=== PATIENT | female | born 1960 | race Caucasian/White ===

== ENCOUNTER 2018-04-10 09:47 | Outpatient (CLI) | payer BC | END 2018-04-10 09:48 | disposition home or self-care (01) | LOC: BICMAMMO 09:47 | PROVIDERS: ATTEND Obstetrics & Gynecology | DX: Z12.31 Encounter for screening mammogram for malignant neoplasm of breast (principal); Z80.3 Family history of malignant neoplasm of breast | CPT/HCPCS: 77063; 77067 ==

== ENCOUNTER 2019-04-15 10:12 | Outpatient (CLI) | payer BC ==
--- NOTE | 2019-04-15 12:06 | MMO ---
Bilateral MAMMO Bilat Screen [facility]. CLINICAL HISTORY: Patient is 59 years old and is seen for screening. The patient has the following family history of breast cancer: maternal grandmother. The patient has no personal history of cancer. The patient has a history of bilateral Breast reduction in November,. VIEWS: The views performed were: bilateral craniocaudal with tomosynthesis and bilateral mediolateral oblique with tomosynthesis. FILMS COMPARED: The present examination has been compared to prior imaging studies performed at [facility] on 03/30/2015, 03/31/2016, 04/05/2017 and 04/10/2018. This study has been interpreted with the assistance of computer-aided detection. MAMMOGRAM FINDINGS: There are scattered fibroglandular densities. There are no suspicious masses, suspicious calcifications, or new areas of architectural distortion. IMPRESSION: THERE IS NO MAMMOGRAPHIC EVIDENCE OF MALIGNANCY. A ROUTINE FOLLOW-UP MAMMOGRAM IN 1 YEAR IS RECOMMENDED. THE RESULTS OF THIS EXAM WERE SENT TO THE PATIENT. ACR BI-RADS Category 1 - Negative MAMMOGRAPHY NOTE: 1. A negative mammogram report should not delay a biopsy if a dominant of clinically suspicious mass is present. 2. Approximately 10% to 15% of breast cancers are not detected by mammography. 3. Adenosis and dense breasts may obscure an underlying neoplasm. Reported by: MARYLU BUTLER MD Electonically Signed: [id number]
== END 2019-04-15 10:13 | disposition home or self-care (01) ==
LOC: BICMAMMO 10:12
PROVIDERS: ATTEND Internal Medicine
DX: Z12.31 Encounter for screening mammogram for malignant neoplasm of breast (principal); Z98.890 Other specified postprocedural states; Z80.3 Family history of malignant neoplasm of breast
CPT/HCPCS: 77063; 77067

== ENCOUNTER 2020-04-20 08:59 | Outpatient (CLI) | payer BC ==
--- NOTE | 2020-04-20 10:02 | MMO ---
Bilateral MAMMO Bilat Screen [facility]. CLINICAL HISTORY: Patient is 60 years old and is seen for screening. The patient has the following family history of breast cancer: maternal grandmother. The patient has no personal history of cancer. The patient has a history of bilateral Breast reduction in November,. VIEWS: The views performed were: bilateral craniocaudal with tomosynthesis and bilateral mediolateral oblique with tomosynthesis. FILMS COMPARED: The present examination has been compared to prior imaging studies performed at [facility] on 03/31/2016, 04/05/2017, 04/10/2018 and 04/15/2019. This study has been interpreted with the assistance of computer-aided detection. MAMMOGRAM FINDINGS: There are scattered fibroglandular densities. There are no suspicious masses, suspicious calcifications, or new areas of architectural distortion. IMPRESSION: THERE IS NO MAMMOGRAPHIC EVIDENCE OF MALIGNANCY. A ROUTINE FOLLOW-UP MAMMOGRAM IN 1 YEAR IS RECOMMENDED. THE RESULTS OF THIS EXAM WERE SENT TO THE PATIENT. ACR BI-RADS Category 1 - Negative MAMMOGRAPHY NOTE: 1. A negative mammogram report should not delay a biopsy if a dominant of clinically suspicious mass is present. 2. Approximately 10% to 15% of breast cancers are not detected by mammography. 3. Adenosis and dense breasts may obscure an underlying neoplasm. Reported by: TIGRE GRANT MD Electonically Signed: [id number]
== END 2020-04-20 09:00 | disposition home or self-care (01) ==
LOC: BICMAMMO 08:59
PROVIDERS: ATTEND Internal Medicine
DX: Z12.31 Encounter for screening mammogram for malignant neoplasm of breast (principal); Z80.3 Family history of malignant neoplasm of breast; Z98.890 Other specified postprocedural states
CPT/HCPCS: 77063; 77067

== ENCOUNTER 2021-05-11 10:56 | Outpatient (CLI) | payer BC | END 2021-05-11 10:57 | disposition home or self-care (01) | LOC: BICMAMMO 10:56 | PROVIDERS: ATTEND Internal Medicine | DX: Z12.31 Encounter for screening mammogram for malignant neoplasm of breast (principal); Z80.3 Family history of malignant neoplasm of breast; Z98.890 Other specified postprocedural states | CPT/HCPCS: 77063; 77067 ==

== ENCOUNTER 2022-07-07 10:39 | Outpatient (CLI) | payer BC | END 2022-07-07 10:40 | disposition home or self-care (01) | LOC: BICMAMMO 10:39 | PROVIDERS: ATTEND Internal Medicine | DX: Z12.31 Encounter for screening mammogram for malignant neoplasm of breast (principal); Z90.13 Acquired absence of bilateral breasts and nipples; Z80.3 Family history of malignant neoplasm of breast | CPT/HCPCS: 77063; 77067 ==

== ENCOUNTER 2022-07-13 10:38 | Outpatient (CLI) | payer BC ==
[2022-07-13 12:10] LABS: #Eosinphils 0.1 10x3/uL (0.0-0.5); #Monocytes 0.6 10x3/uL (0.0-1.1); #Neutrophils 3.2 10x3/uL (1.5-8.4); %Basophils 0.4 % (0.0-2.0); %Eosinophils 0.9 % (0.0-6.0); %Lymphocytes 27.7 % (18.0-47.0); %Monocytes 10.5 % (0.0-10.0); %Neutrophils 60.3 % (40.0-75.0); Hemoglobin 14.3 g/dL (12.0-15.5); Mean Corpuscular HGB CONC 32.8 g/dL (32.0-36.0); Mean Corpuscular Hemoglobin 30.4 pg (27.0-33.0); Mean Corpuscular Volume 92.6 fl (81.6-98.3); Mean Platelet Volume 9.6 fl (7.4-10.4); Platelet Count 327 10x3/uL (150-450); RBC Distribution Width 13.1 % (11.5-14.5); Red Blood Cell (RBC) Count 4.71 10x6/uL (3.90-5.03); White Blood Cell (WBC) Count 5.4 10x3/uL (3.5-10.5)
[2022-07-13 12:23] LABS: INR-International Normal Ratio 0.9; Prothrombin Time 10.1 sec (9.5-12.1)
[2022-07-13 12:25] LABS: Anion Gap 14 mmol/L (10-20); BUN (Urea Nitrogen) 17 mg/dL (9.8-20.1); Calc. Creatinine Clearance 0 mL/min (70-130); Calcium 9.7 mg/dL (7.8-10.44); Carbon Dioxide 25 mmol/L (23-31); Chloride 105 mmol/L (98-107); Estimated GFR 72; Glucose 99 mg/dL (80-115); Potassium 4.4 mmol/L (3.5-5.1); Sodium 140 mmol/L (136-145)
== END 2022-07-13 10:39 | disposition home or self-care (01) ==
LOC: LABBT 10:38
PROVIDERS: ATTEND Orthopaedic Surgery
DX: Z01.818 Encounter for other preprocedural examination (principal); M16.12 Unilateral primary osteoarthritis, left hip
CPT/HCPCS: 80048; 85025; 85610; 87081; 93005; 93010

== ENCOUNTER 2022-07-18 05:33 | Observation (INO) | payer BC ==
[2022-07-14 13:07] VITALS: BMI 24.3
[2022-07-18] MEDS ORDERED: fentaNYL PF 100 MCG/2 ML SYRINGE ONE ×2 (06:03→08:18)
[2022-07-18] MEDS ORDERED: Midazolam HCl 2 mg/2 ml Vial ONE (06:13)
[2022-07-18] MEDS ORDERED: Lidocaine 2% 6 ML SYR ONE (06:13)
[2022-07-18] MEDS ORDERED: PHENYLEPHRINE-NS 100 MCG/ML 10 ML SYRINGE ONE ×2 (06:14→06:33)
[2022-07-18] MEDS ORDERED: Bupivacaine PF 0.5% 30 ML VIAL ONE ×2 (06:27→06:28)
[2022-07-18] MEDS ORDERED: Vancomycin 1 GM/200 ML (FROZEN) BAG ONE (06:31)
[2022-07-18] MEDS ORDERED: Tranexamic Acid 1,000 MG/10 ML VIAL ONE (06:31)
[2022-07-18] MEDS ORDERED: Sodium Chloride 0.9% 100 ML ONE ×2 (06:31→06:49)
[2022-07-18] MEDS ORDERED: Dexamethasone 20 MG/5 ML VIAL ONE (06:33)
[2022-07-18] MEDS ORDERED: PROPOFOL 200 MG/20 ML VIAL ONE (06:33)
[2022-07-18] MEDS ORDERED: Rocuronium Bromide 10 MG/ML (10ML VIAL) ONE (06:33)
[2022-07-18] MEDS ORDERED: Lidocaine 1.5% w/Epi 1:200K 30 ML VIAL (Epid Use) ONE (06:33)
[2022-07-18] MEDS ORDERED: ePHEDrine 50 MG/ML VIAL ONE (06:33)
[2022-07-18] MEDS ORDERED: Ondansetron PF 4 MG/2 ML Vial ONE (06:33)
[2022-07-18] MEDS ORDERED: CEFAZOLIN 2 GM VIAL ONE (06:49)
[2022-07-18] MEDS ORDERED: Bupivacaine/Epinephrine 0.25% 30 ML VIAL ONE (07:00)
[2022-07-18 07:10] LABS: SARS-CoV-2 NAA Rapid Test Not Detected (NotDetected)
[2022-07-18] MEDS ORDERED: Bupivacaine 0.25% 10 ML VIAL EPIDURAL PRN (07:30)
[2022-07-18] MEDS ORDERED: Naloxone HCl 0.4 mg/ml Vial IV PRN (07:30)
[2022-07-18] MEDS ORDERED: Promethazine HCl 25 MG/ML VIAL IM PRN ×3 (07:30→09:27)
[2022-07-18] MEDS ORDERED: diphenhydrAMINE 50 MG/ML VIAL IM PRN (07:30)
[2022-07-18] MEDS ORDERED: Fentanyl/Bupivacaine 100 ML EPIDURAL SCH (07:30)
[2022-07-18] MEDS ORDERED: Promethazine HCl 25 MG SUPP PR PRN (07:30)
[2022-07-18] MEDS ORDERED: Zolpidem Tartrate 5 MG TAB PO PRN ×2 (07:30→09:27)
[2022-07-18] MEDS ORDERED: traMADol HCl 50 MG TAB PO PRN ×2 (07:30)
[2022-07-18] MEDS ORDERED: HYDROcodone/Acetaminophen 5/325 mg Tablet PO PRN ×2 (07:30)
[2022-07-18] MEDS ORDERED: Moisturizing Cream (Eucerin) 113 GM JAR TOP PRN (07:30)
[2022-07-18] MEDS ORDERED: diphenhydrAMINE 25 MG CAP PO PRN ×2 (07:30→09:27)
[2022-07-18] MEDS ORDERED: Ondansetron PF 4 MG/2 ML Vial IVP PRN ×2 (07:30→09:27)
[2022-07-18] MEDS ORDERED: Naloxone HCl 0.4 mg/ml Vial IVP PRN (07:30)
[2022-07-18] MEDS ORDERED: diphenhydrAMINE 50 MG/ML VIAL IVP PRN (07:30)
[2022-07-18] MEDS ORDERED: Ondansetron HCl/PF 4 MG/2 ML Vial IVP PRN (09:21)
[2022-07-18] MEDS ORDERED: HYDROmorphone 2 MG/ML VIAL SLOW IVP PRN (09:21)
[2022-07-18] MEDS ORDERED: Ketorolac Tromethamine 30 MG/ML VIAL IVP PRN (09:21)
[2022-07-18] MEDS ORDERED: Acetaminophen 325 MG TAB PO PRN (09:27)
[2022-07-18] MEDS ORDERED: Ketorolac Tromethamine 30 MG/ML VIAL ONE (13:27)
[2022-07-18] MEDS: Ketorolac Tromethamine 30 MG/ML VIAL IVP SCH ×3 (13:30→23:26)
[2022-07-18] MEDS: Multivitamin W/ Minerals 1 TAB PO SCH (15:03)
[2022-07-18] MEDS: Aspirin 81 mg Enteric Coated Tablet PO SCH ×2 (15:03→21:39)
[2022-07-18] MEDS: Ferrous Gluconate 324 MG TAB PO SCH ×2 (15:03→21:39)
[2022-07-18] MEDS: Senokot S 8.6-50 MG TAB PO SCH ×2 (15:04→21:39)
[2022-07-18] MEDS: CEFAZOLIN 2 GM in Sodium Chloride 0.9% 100 ML IVPB SCH ×2 (15:41→21:39)
[2022-07-19] MEDS: Ketorolac Tromethamine 30 MG/ML VIAL IVP SCH ×2 (05:12→13:12)
[2022-07-19 06:05] LABS: Hemoglobin 11.2 g/dL (12.0-16.0); Mean Corpuscular HGB CONC 32.7 g/dL (32.0-36.0); Mean Corpuscular Volume 97.9 fl (78.0-98.0); Mean Platelet Volume 7.6 fL (7.4-10.4); Platelet Count 235 10x3/uL (130-400); RBC Distribution Width 12.1 % (11.5-14.5); Red Blood Cell (RBC) Count 3.49 mill/uL (4.20-5.40); White Blood Cell (WBC) Count 6.2 10x3/uL (4.8-10.8)
[2022-07-19] MEDS: Aspirin 81 mg Enteric Coated Tablet PO SCH (09:18)
[2022-07-19] MEDS: Senokot S 8.6-50 MG TAB PO SCH (09:18)
[2022-07-19] MEDS: Multivitamin W/ Minerals 1 TAB PO SCH (09:18)
[2022-07-19] MEDS: Ferrous Gluconate 324 MG TAB PO SCH (09:18)
[2022-07-19] MEDS ORDERED: HYDROcodone/Acetaminophen 10/325 mg Tablet PO PRN ×2 (11:45)
[2022-07-19 16:30] VITALS: BP 97/50; TEMP 98
== END 2022-07-19 17:50 | disposition home or self-care (01) ==
LOC: SDC 05:33 → SURG A 09:27 → INTOOBSV 09:27
PROVIDERS: ADMIT Orthopaedic Surgery; ATTEND Orthopaedic Surgery
PROC: 0SRB04A Replacement of Left Hip Joint with Ceramic on Polyethylene Synthetic Substitute, Uncemented, Open Approach (ICD-10-PCS; principal; 2022-07-18)
DX: M16.12 Unilateral primary osteoarthritis, left hip (principal); J42 Unspecified chronic bronchitis; Z79.82 Long term (current) use of aspirin; Z88.5 Allergy status to narcotic agent; Z20.822 Contact with and (suspected) exposure to COVID-19
CPT/HCPCS: 36415; 72170; 85027; 96365; 96375; 96376; C1776; G0378; J1100; J1885; J2001; J2250; J2405; J2704; J3370-JW; J3490; S0020; U0002